=== PATIENT | female | born 1950 | race Caucasian/White ===

== ENCOUNTER 2019-06-23 01:29 | Inpatient (IN) | payer OTHER ==
[~2019-06-23] VITALS: Ht 170.2 cm; Wt 70.8 kg
[~2019-06-23 01:29] MED LIST: ADDERALL 15 MG15 MG PO; ANTIVERT25 MG PO; ASPIR 8181 MG PO; ASPIRIN325 PO; BACK STABILIZE1 EACH MC; CELEXA 20 MG TA20 MG PO; FLEXERIL PO; HYDROCODON-ACE1 EAC7 PO; HYDROCODONE-AP1 EAC6 PO; IBUPROFEN 600600 M1 PO; LISINOPRIL2.5 MG PO; MELATONIN3 M1 PO; NAPROSYN500 M1 PO; NAPROSYN500 MG PO; NITROGLYCERIN0.4 MG SUBLING; PANTOPRAZOLE SO40 M1 PO; PREDNISONE 20 M20 MG PO; ROBAXIN 750 MG750 M1 PO; TRAMADOL 50 MG50 MG PO
[2019-06-23 02:30] VITALS: BP 139/82
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
--- NOTE | 2019-06-23 04:35 | NUR ---
PATIENT WAS IN BED WHEN THIS NURSE CAME ON SHIFT AT 1900. HE THEN GOT UP AND CAME OUT TO TO WATCH TV AND TAKE HIS HS MEDS. HE REFUSED TO HAVE HIS ACUCHECK DONE SO SS INSULIN WAS NOT GIVEN. PATIENT WENT BACK TO BED AFTER HIS MEDS WERE GIVEN AROUND 2129. HE HAS BEEN SLEEPING THRU THE NIGHT. HE DENIES PAIN. HE DOES GET EASILY AGITATED AROUND ANOTHER MALE PATIENT. HE KEPT HIS EYE ON HIM BUT DID NOT MAKE COMMENTS TO THE PATIENT TO START ANY PROBLEMS. BED IN LOW POSITION. CONTINUING TO MONITOR.
[2019-06-23 08:59] VITALS: BP 128/66
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
--- NOTE | 2019-06-23 13:12 | NUR ---
0900 PATIENT REFUSED GROUPS DID NOT WANT TO LEAVE ROOM, I TRIED TO ENCOURAGE PATIENT TO INTERACT MORE.
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
--- NOTE | 2019-06-23 21:50 | NUR ---
Assumed care at change of shift. Pt. sitting in day room conversing with peers and watching TV. She seems to especially delight in her conversation with a male peer, Wes Alanis. She is smiling and speaking mainly to him.
[2019-06-24 05:45] VITALS: BP 128/66
[2019-06-24 08:46] VITALS: BP 114/75
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
--- NOTE | 2019-06-24 16:52 | NUR ---
SW check in with Pt at 10 am. Pt seemed confused and started talking about the conversation from yesterday. Pt believes that SW will be able to help her find a nursin home that accepts pets. Sw clarified that skilled nursing don't take pets and the conversation was about assisted living. Pt became visibly upset stating "I know there are nursing homes I can take my cat!". SW tried tried to clarify NH and AL for Pt. Pt was insistent on a NH. Pt seem to become more irritated as the converstion went on. Stating " I need a skilled nursing in [place] or [place] so I can be close to my music". Pt continues to repeat her plan over and over. SW informed that she would have to return to her NH as the unit is only temporary. Pt again became upset and confused yelling " What are you talking about, I am not going back to that place". SW ended conversation, however Pt continued to talk about getting her own apt or going to another skilled nursing where she can take her cat. TYE team will continue to follow up on Pt during her stay.
[2019-06-24 19:05] VITALS: BP 100/61
--- NOTE | 2019-06-25 04:04 | NUR ---
ASSUMED CARE OF PT AT 1900HRS. PT WAS CALM AND COOPERATIVE THIS SHIFT. PT WAS ABLE TO TAKE HER MEDS WHOLE WITH WATER. ONE PILL AT A TIME. PT DENIED SI/HI/AH/VH THIS SHIFT. PT REPORTED SOME BACK PAIN. PT WAS ABLE TO GET COMFORTABLE AND SLEEP PART OF THE SHIFT. VSS AND NO S/S OF ACUTE DISTRESS. WILL CONTINUE TO MONITOR.
[2019-06-25 09:03] VITALS: BP 120/57
[2019-06-25 11:12] VITALS: BP 120/57
--- NOTE | 2019-06-25 11:17 | NUR ---
ASSUMED CARE OF PT AT 0700. PT LYING IN BED SLEEP. PT AWAKENED ONCE I CAME INTO ROOM FOR ASSESSMENT. PT A&O X. 3. PT DENIED HAVING ANY PAIN AND AGREED TO GET UP AND GET DRESSED FOR BREAKFAST. PT AMBULATED TO DAY ROOM, WALKING ALONGSIDE NURSE. PT GIVEN AND TOLERATED SCHEDULED MEDS WITHOUT DIFFICULTY. PT IS REQUESTING TO KNOW WHEN SHE WILL BE DISCHARGED. ADVISED HER TO SPEAK W/DR. AND/OR SW ABOUT THIS ONCE THEY MAKE THEIR ROUNDS. PT DENIES SI/HI/AH/VH. WILL CONTINUE TO MONITOR.
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
--- NOTE | 2019-06-25 14:48 | NUR ---
Pt was hostile and wanting to talk baout leaving here and increased in frustration. No group due to COVID 19 restrictions
[2019-06-25 19:47] VITALS: BP 114/72
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
[2019-06-26 08:56] VITALS: BP 130/96
[2019-06-26 09:27] VITALS: BP 130/96
--- NOTE | 2019-06-26 10:16 | NUR ---
Assumed care of pt at 0700. Pt in bed resting and stated, "I'm waiting for breakfast." Pt denies pain at this time. Pt cooperative and pleasant. Got up and dressed for breakfast and into the dayroom. Pt was given her meds and tolerated well, without difficulty. Pt continues to ask, "when am I going home?" Pt wanted to lay down instead of participating in group activity. Stating, "I just need to rest." Will continue to monitor.
--- NOTE | 2019-06-26 14:49 | NUR ---
Bill and Dr domingo called [facility] and their Sw reported that the pt needed to have 2 negative covid 19 tests completed per CDC guidelines. Dr Domingo requested that these guidelines be faxed to the unit for verification. It expected that pt will be ready to d/c on Tuesday and [facility] is expected to accept this pt back. BILL sent updates today to [facility].
--- NOTE | 2019-06-26 14:53 | NUR ---
1400 ASSUMED CARE OF PATIENT. PATIENT SITTING AT TABLE WATCHING TV. CLINICAL RESEARCH DIRECTOR CALLS PATIENT BY NAME (TIFFANY) AND QUICKLY ASKS CLINICAL RESEARCH DIRECTOR, "WHAT DID YOU CALL ME?". PATIENT DOES NOT WANT TO BE CALLED BY THAT NAME AND PREFERS HU. PATIENT TAKES MED WITHOUT DIFFICULTY. WILL CONTINUE TO OBSERVE PATIENT.
--- NOTE | 2019-06-26 17:54 | NUR ---
PATIENT UPSET REQUESTING TO CALL A INTERNET MANAGER STATING "THEY WANT TO PLACE ME IN A [facility], I JUST WANT TO GO HOME". PATIENT SITTING IN DAYROOM QUIETLY AT THIS TIME TALKING WITH OTHERS WELL.
[2019-06-26 19:20] VITALS: BP 114/58
[2019-06-26 22:00] VITALS: BP 114/58
--- NOTE | 2019-06-26 23:18 | NUR ---
Assumed care of patient this pm shift. Patient is apprehensive and anxious. Patient states that she does not want to go to a residential. Patient states that people are lying to her. Patient is neat and tidy, wearing a hospital gown. Patient is ambulatory. Patient takes medications whole. Patients assessment shows clear breath sounds, active bowel sounds, and s1 s2 heard with auscultation. Patient denies pain. Patient denies hi/si. We will continue to monitor.
--- NOTE | 2019-06-27 09:03 | NUR ---
TYE called and left a VM for TYE at [place]. Will call back before treatment team and ask for jr. systems administrator next if I don't hear from TYE.
[2019-06-27 09:25] VITALS: BP 124/73
--- NOTE | 2019-06-27 09:33 | NUR ---
TYE spoke with michelle GAMBLE and it was established that it was their corporate office that decided this, and apologized for the confusion. She asked for a letter on the letterhead stating that this pt has had the last 3 days of symptom free of COVID 19 . D/C will go as planned when Dr lockwood orders it.
--- NOTE | 2019-06-27 13:47 | NUR ---
Wants to go home to "her house to live with her son." She has not seen him for "some time" but knows where it is and how to get in without a bhatia. Says has has not been paying the mortgage in a couple of months and has $800.00 to pay on it. She does not know her son's phone number. He does not know about her wishes to "come home." She says her feet are tender, + pedal pulses, no edema. C/o back pain does not want anything for it. Retreats to her bed when not in group. Compliant with medications.
--- NOTE | 2019-06-27 14:46 | NUR ---
TYE spoke with [facility] and provided them a letter of incapacitation per their request. They are submitting the application for PA this week. D/C is expected Tuesday. There will be a letter provided with the pt's weekly temperature.
[2019-06-27 19:53] VITALS: BP 106/64
--- NOTE | 2019-06-27 23:07 | NUR ---
Pt oriented to self. Pt was in her room at time of assessment. Pt was calm and cooperative with assessment. Pt voiced that she is wanting to get in touch with her sons but does not have son's phone number. Pt voiced that staffing will have to go out there in [place] in order to get in touch with son. Pt voiced wanting to go home rather than to facility. Pt took pills whole. Pt had Hs snacks. Pt currently in bed sleeping. Will continue to monitor.
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
[2019-06-28 09:27] VITALS: BP 110/61
--- NOTE | 2019-06-28 12:33 | NUR ---
Pt will d/c on 06/28/19 at 10 am with [facility] [phone]. Pt will d/c skilled with pt/ot and st. TYE made packet left on chart. D/C faxcoversheet is ready and orders adn summary will be sent tomorrow.
--- NOTE | 2019-06-28 14:22 | NUR ---
SW attempted to dicuss her d/c plans but she got frustrated and sad that she wasn't going home. Sw proived reassurance. No groups due to COVID 19 restrictions
[2019-06-28 19:29] VITALS: BP 102/71
--- NOTE | 2019-06-28 23:46 | NUR ---
1914 start of shift pt sitting in day room. [address] and person, skin w/d. RR even and non labored pt is pleasant and complaint with answering RN question. Pt presents happy and smiling. PT denies any pain at this time and has no further medical complaints. Pt denies SI/HI/VA/ERVIN at this time. Zero acute distress noted at this time. Pt took HS medication, pt did a dry swallow with first pill and communicated it was stuck, after taking over 60mL of water pill was cleared, the next two pills pt had zero difficulty r/t using water. RR even and non-labored, zero acute distress noted and pt reported no further concerns at this time.
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
[2019-06-29] MEDS ORDERED: LEXAPRO 10 MG T10 M1 PO (09:10)
[2019-06-29] MEDS ORDERED: OXCARBAZEPINE300 MG PO (09:10)
[2019-06-29] MEDS ORDERED: SEROQUEL 50 MG50 MG PO (09:11)
[2019-06-29] MEDS ORDERED: MELATONIN5 M1 PO (09:11)
[2019-06-29 09:13] VITALS: BP 136/88
[2019-06-29] MEDS ORDERED: ZYPREXA10 MG IM (09:13)
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
== END 2019-06-29 10:00 | DRG 57 ==
LOC: SBH
PROVIDERS: ADMIT Psychiatry & Neurology Psychiatry
DX: G30.9 Alzheimer's disease, unspecified (principal); F02.81 Dementia in other diseases classified elsewhere, unspecified severity, with behavioral disturbance; F01.51 Vascular dementia, unspecified severity, with behavioral disturbance; R45.851 Suicidal ideations; F32.9 Major depressive disorder, single episode, unspecified; I11.0 Hypertensive heart disease with heart failure; I50.9 Heart failure, unspecified; Z86.73 Personal history of transient ischemic attack (TIA), and cerebral infarction without residual deficits; Z91.012 Allergy to eggs; Z79.899 Other long term (current) drug therapy
CPT/HCPCS: 10880